=== PATIENT | male | born 1975 | race Caucasian/White ===

== ENCOUNTER → 2021-06-14 | Outpatient (CLI) | payer BC ==
--- NOTE | 2021-06-14 14:11 | RAD ---
MR#: [id number] Date of Study: 06/14/2021 Ordering Physician: VIVIANA SRIVASTAVA, Referring Physician: VIVIANA SRIVASTAVA, Tech: Mateusz Doherty MBA, RDMS, RVT, RDCS, RTR APPROVED REPORT Patient Location : OUT-PATIENT Indications Lower Extremity Edema : Bilateral Findings Limited grayscale images of the saphenofemoral junctions are grossly unremarkable Although there is reflux noted at the level of the saphenofemoral junction no obvious reflux is noted in the greater saphenous vein on the right side. No significant reflux in the right lesser saphenou s vein. The left greater saphenous vein also did not reveal any obvious evidence of reflux. The left lesser saphenous vein was not visualized Critical Notification Critical Value: No <Conclusion> 1. Negative for reflux in the bilateral greater saphenous veins and right lesser saphenous vein. Le ft lesser saphenous vein was not visualized Signed by : Musa Butts, Electronically Approved : 06/14/2021 14:10:36
--- NOTE | 2021-06-14 14:12 | RAD ---
MR#: [id number] Date of Study: 06/14/2021 Ordering Physician: VIVIANA SRIVASTAVA, Referring Physician: VIVIANA SRIVASTAVA, Tech: Mateusz Doherty MBA, RDMS, RVT, RDCS, RTR APPROVED REPORT Bilateral Lower Extremity Venous Study for DVT Patient Location: OUT-PATIENT Indications Lower Extremity Edema: Bilateral Vein Imaging (Right) CFV (R): Compressible SFJ (R): Compressible FEM (R): Compressible POP (R): Compressible DFV (R): Compressible PTV (R): Spontaneous GSV (R): Spontaneous Peroneals (R): Spontaneous Vein Imaging (Left) CFV (L): Compressible SFJ (L): Compressible FEM (L): Compressible POP (L): Compressible DFV (L): Compressible PTV (L): Spontaneous GSV (L): Spontaneous Peroneals (L): Spontaneous Doppler Evaluation (Right) CFV (R): Spontaneous POP (R):Spontaneous Doppler Evaluation (Left) CFV (L):Spontaneous POP (L):Spontaneous Findings The bilateral lower extremity deep veins were evaluated for thrombus with color Doppler, spectral and grayscale images. On the right the grayscale images of the common femoral, superficial femoral and popliteal veins do n ot demonstrate any evidence of thrombus and these veins appear to be compressible. The below-knee vei ns were not well visualized but grossly appear to be compressible. Spectral imaging and color Doppler do not reveal any evidence of obstruction to flow with normal respirophasic variation above the knee . Below the knee there is spontaneous flow noted. On the left, the grayscale images of the common femoral, superficial femoral and popliteal veins do n ot demonstrate any evidence of thrombus and these veins appear to be compressible. The below-knee vei ns again were not well visualized but grossly appear to be compressible. Spectral imaging and color D oppler do not reveal any evidence of obstruction to flow with normal respirophasic variation above th e knee. The below-knee veins demonstrate spontaneous flow. Critical Notification Critical Value: No <Conclusion> 1. Negative for DVT in the bilateral lower extremities. 2. Technically difficult study. Signed by : Musa Butts, Electronically Approved : 06/14/2021 14:11:41
--- NOTE | 2021-06-14 16:04 | CARD ---
MR#: [id number] Date of Study: 06/14/2021 Ordering Physician: VIVIANA SRIVASTAVA, Referring Physician: Mc KRAUS: Jose Alan [facility] APPROVED REPORT EXAM: Two-dimensional and M-mode echocardiogram with Doppler and color Doppler. Other Information Quality : Technically LimitedHR: 71bpm Rhythm : NSRTechnically limited study due to body habitus. INDICATION Edema RISK FACTORS Obesity Diabetes 2D DIMENSIONS Left Atrium(2D)4.2 (1.6-4.0cm)IVSd1.1 (0.7-1.1cm) Aortic Root(2D)3.6 (2.0-3.7cm)LVDd5.2 (3.9-5.9cm) LVOT Diameter2.3 (1.8-2.4cm)PWd1.1 (0.7-1.1cm) LA Acobyd06 (18-58mL)LVDs3.4 (2.5-4.0cm) FS (%) 34.7 %SV81.0 ml Aortic Valve AoV Peak Kartihk.136.9cm/sAoV VTI24.5cm AO Peak GR.7.5mmHgLVOT Peak Karthik.90.4cm/s LVOT VTI 17.94cmAO Mean GR.4mmHg ANTONIA (VMAX)1.17qv1HPU (VTI)3.12cm2 Mitral Valve MV E Pktenbvv72.5cm/sMV DECEL [id number] MV A Stvityza03.4cm/sMV E Mean Gr.1mmHg MV [id number]/A Ratio1.0 MVA (PHT)2.55cm2 TDI E/Lateral E'6.2E/Medial E'7.7 Pulmonary Valve PV Peak Cxqcfpfu09.3cm/sPV Peak Grad.4mmHg Tricuspid Valve TR P. Pfiikipg147fz/sTR Peak Gr.20mmHg LEFT VENTRICLE The left ventricle is normal size. There is normal left ventricular wall thickness. The left ventric ular systolic function is normal and the ejection fraction is within normal range. LV ejection fracti on is 50 to 55%. There is normal LV segmental wall motion. The left ventricular diastolic function an d filling is normal for age. No left ventricle thrombus noted on this study. There is no ventricular septal defect visualized. There is no left ventricular aneurysm. There is no mass noted in the left v entricle. RIGHT VENTRICLE The right ventricle is normal size. There is normal right ventricular wall thickness. The right ventr icular systolic function is normal. ATRIA The left atrium is borderline dilated. The right atrium size is normal. The interatrial septum is int act with no evidence for an atrial septal defect or patent foramen ovale as noted on 2-D or Doppler i maging. AORTIC VALVE The aortic valve is normal in structure and function. Doppler and Color Flow revealed no significant aortic regurgitation. There is no significant aortic valvular stenosis. There is no aortic valvular v egetation. MITRAL VALVE The mitral valve is normal in structure and function. There is no evidence of mitral valve prolapse. There is no mitral valve stenosis. Doppler and Color Flow revealed trace mitral valve regurgitation. TRICUSPID VALVE The tricuspid valve is not wel seen. Doppler and Color Flow revealed trace tricuspid regurgitation. T he PA pressure was estimated at 30 mmHg. There is no tricuspid valve prolapse or vegetation. There is no tricuspid valve stenosis. PULMONIC VALVE The pulmonary valve is normal in structure and function. Doppler and Color Flow revealed no pulmonic valvular regurgitation. There is no pulmonic valvular stenosis. GREAT VESSELS The aortic root is normal in size. The ascending aorta is normal in size. The pulmonary artery is nor mal. The IVC is normal in size and collapses >50% with inspiration. PERICARDIAL EFFUSION There is no pleural effusion. There is no evidence of significant pericardial effusion. Critical Notification Critical Value: No <Conclusion> The left ventricle is normal size. The left ventricular systolic function is normal and the ejection fraction is within normal range. LV ejection fraction is 50 to 55%. Doppler and Color Flow revealed no significant aortic regurgitation. There is no significant aortic valvular stenosis. Doppler and Color Flow revealed trace mitral valve regurgitation. Doppler and Color Flow revealed trace tricuspid regurgitation. The PA pressure was estimated at 30 mmHg. Signed by : Ronnie Fontaine MD Electronically Approved : 06/14/2021 16:04:18
== END ==
LOC: US 08:09
PROVIDERS: ATTEND Internal Medicine Cardiovascular Disease
DX: N18.9 Chronic kidney disease, unspecified (principal); I83.009 Varicose veins of unspecified lower extremity with ulcer of unspecified site
CPT/HCPCS: 93306; 93970; C8929